=== PATIENT | female | born 1995 | race Asian ===

== ENCOUNTER 2020-04-28 19:00 | Emergency (ER) | payer OTHER ==
[~2020-04-28] VITALS: Ht 162.6 cm; Wt 113.4 kg
--- NOTE | 2020-04-28 19:00 | NUR ---
Patient BIBA BLS, transferred to bed 11. RN evaluating patient at bedside.
[2020-04-28 19:01] VITALS: BP 172/98
--- NOTE | 2020-04-28 19:26 | NUR ---
Dr. Howard is evaluating the patient at bedside.
[2020-04-28] MEDS ORDERED: ONDANSETRON 4 MG ODT PO ONE (19:30)
[2020-04-28] MEDS ORDERED: HYDROcodone/APAP 5/325 MG 1 TAB TAB PO ONE (19:30)
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
--- NOTE | 2020-04-28 20:34 | NUR ---
PATIENT TAKEN TO CT VIA W/C.
--- NOTE | 2020-04-28 20:47 | NUR ---
PT RETURN FROM CT
--- NOTE | 2020-04-28 21:30 | NUR ---
PATIENT STATES PAIN DECREASED FROM 10/10 AND IS CURRENTLY 4/10 JIMENEZ. VSS.
--- NOTE | 2020-04-28 21:44 | NUR ---
Patient is currently ambulatory with steady gait, able to walk unassisted. Alert and oriented. Is not driving self for discharge out of facility.
[2020-04-28 21:45] VITALS: BP 138/84
--- NOTE | 2020-04-28 21:45 | NUR ---
Patient discharged with v/s stable. Written and verbal after care instructions given and explained. Patient alert, oriented and verbalized understanding of instructions. Ambulatory with steady gait. All questions addressed prior to discharge. ID band removed. Patient advised to follow up with PMD. Rx of NORCO ZOFRAN given. Patient educated on indication of medication including possible reaction and side effects. Opportunity to ask questions provided and answered.
== END 2020-04-28 21:45 | disposition home or self-care (01) ==
LOC: MED 19:00
DX: S16.1XXA Strain of muscle, fascia and tendon at neck level, initial encounter (principal); R51.9 Headache, unspecified; V49.40XA Driver injured in collision with unspecified motor vehicles in traffic accident, initial encounter; Y93.89 Activity, other specified; Y92.488 Other paved roadways as the place of occurrence of the external cause; Y99.8 Other external cause status
CPT/HCPCS: 70450; 72125; 99285; Q0162